=== PATIENT | male | born 1970 | race Two or more races ===

== ENCOUNTER 2023-04-19 18:01 | Inpatient (IN) | payer MEDICARE ==
[~2023-04-19] VITALS: Ht 172.7 cm; Wt 140.2 kg
[2023-04-19] MEDS ORDERED: SODIUM CHLORIDE 0.9% 3,900 ML IV ONE (18:30)
[2023-04-19] MEDS ORDERED: 0.9% SODIUM CHLORIDE 10 ML SYRINGE IVP PRN (18:30)
[2023-04-19] MEDS ORDERED: PERTUSS(ACELL),DIPH,TET VAC/PF 0.5 ML SYRINGE IM. ONE (18:45)
[2023-04-19] MEDS ORDERED: VANCOMYCIN HCL 1.5 GM in DEXTROSE 5%-WATER 250 ML IV ONE (19:00)
[2023-04-19] MEDS ORDERED: MORPHINE SULFATE 2 MG/ML SYRINGE IVP ONE ×2 (19:15→23:00)
[2023-04-19] MEDS ORDERED: ACETAMINOPHEN 500 MG TABLET PO ONE (19:30)
[2023-04-19 19:34] LABS: BASOPHILS % (AUTO) 0.3 % (0.0-2.0); EOSINOPHILS % (AUTO) 0.2 % (1.0-6.0); HEMATOCRIT 39.7 % (41-53); HEMOGLOBIN 13.2 g/dL (13.5-17.5); LYMPHOCYTES # (AUTO) 0.6 K/uL (1.0-4.8); LYMPHOCYTES % (AUTO) 4.3 % (22.0-44.0); MEAN CORPUSCULAR HEMOGLOBIN 27.6 pg (26.0-34.0); MEAN CORPUSCULAR HGB CONC 33.2 G/dL (31.0-37.0); MEAN CORPUSCULAR VOLUME 83 fL (80-100); MONOCYTES # (AUTO) 0.5 K/uL (0.1-1.0); MONOCYTES % (AUTO) 3.7 % (2.0-9.0); NEUTROPHILS # (AUTO) 12.8 K/uL (1.8-7.7); PLATELET COUNT (AUTO) 234 K/uL (150-450); RED BLOOD CELL COUNT(AUTO) 4.78 MIL/uL (4.50-5.90); RED CELL DISTRIBUTION WIDTH 13.8 % (11.5-14.5)
[2023-04-19 19:37] LABS: NEUTROPHILS % (AUTO) 91.5 % (40.0-70.0)
[2023-04-19 19:43] LABS: ANION GAP 10 mmol/L (8-16); CALCIUM, TOTAL 8.2 mg/dL (8.8-10.5); CARBON DIOXIDE 29 mmol/L (22-29); CHLORIDE 97 mmol/L (98-107); CREATININE 1.08 mg/dL (0.60-1.30); GLOMERULAR FILTR. RATE CALC > 60 mL/min (>60); GLUCOSE,RANDOM 112 mg/dL (70-110); POTASSIUM 3.2 mmol/L (3.5-5.1); PROTHROMBIN TIME 10.5 SEC (9.4-11.6); SODIUM SERUM 136 mmol/L (136-145); UREA NITROGEN, BLOOD 12 mg/dL (7-18)
[2023-04-19 19:50] LABS: ALANINE AMINOTRANSFERASE 32 U/L (12-78); ALKALINE PHOSPHATASE 78 U/L (46-116); ASPARTATE AMINOTRANSFERASE 27 U/L (15-37); BILIRUBIN,TOTAL 0.7 mg/dL (0.1-1.0); LIPASE 20 U/L (16-77)
[2023-04-19 19:52] LABS: LACTIC ACID 1.9 mmol/L (0.4-2.0)
[2023-04-19 20:02] LABS: ALCOHOL, BLOOD (SERUM) < 3 mg/dL (0-10)
[2023-04-19 20:21] LABS: COVID AG,FIA SOURCE NASAL SWAB
[2023-04-19 20:38] LABS: SARS-COV2 (COVID) ANTIGEN,FIA Negative (Negative)
[2023-04-19 22:28] VITALS: BP 122/96; PULSE 112; RESP 20; TEMP 100.2
[2023-04-19 22:49] LABS: APPEARANCE,URINE CLEAR (CLEAR); BILIRUBIN,URINE NEGATIVE (NEGATIVE); COLOR,URINE YELLOW (YELLOW); GLUCOSE, URINE (UA) NEGATIVE (NEGATIVE); KETONES,URINE NEGATIVE (NEGATIVE); LEUKOCYTE ESTERASE ,URINE NEGATIVE (NEGATIVE); NITRATE,URINE NEGATIVE (NEGATIVE); OCCULT BLOOD,URINE NEGATIVE (NEGATIVE); PH,URINE 6.5 (5.0-8.0); PROTEIN,URINE NEGATIVE (NEGATIVE); SPECIFIC GRAVITIY, URINE 1.013 (1.003-1.030)
[2023-04-19 22:58] LABS: AMPHET/METH SCREEN,URINE NEGATIVE (NEGATIVE); BARBITURATE SCREEN, URINE NEGATIVE (NEGATIVE); BENZODIAZEPINES SCREEN,URINE NEGATIVE (NEGATIVE); CANNABINOID SCREEN,URINE NEGATIVE (NEGATIVE); COCAINE SCREEN,URINE POSITIVE (NEGATIVE); METHADONE SCREEN, URINE NEGATIVE (NEGATIVE); OPIATE SCREEN,URINE POSITIVE (NEGATIVE); PHENCYCLIDINE SCREEN,URINE NEGATIVE (NEGATIVE)
[2023-04-19 23:07] LABS: ALCOHOL, URINE DRUG SCREEN NEGATIVE (NEGATIVE)
[2023-04-19 23:11] LABS: PH,URINE DRUG SCREEN 6.5 (5.0-8.0)
[2023-04-20] MEDS ORDERED: VANCOMYCIN HCL 1.25 GM in DEXTROSE 5%-WATER 250 ML IV SCH (01:30)
[2023-04-20] MEDS ORDERED: SODIUM CHLORIDE 0.9% 3,900 ML IV ONE (01:30)
[2023-04-20] MEDS ORDERED: ALBUTEROL SULFATE 2.5 MG/0.5 ML NEB SOLUTION NEB PRN (01:30)
[2023-04-20] MEDS ORDERED: MORPHINE SULFATE 2 MG/ML SYRINGE IVP PRN (01:30)
[2023-04-20] MEDS ORDERED: IPRATROPIUM BROMIDE 0.5 MG/2.5 ML NEB SOLUTION NEB PRN (01:30)
[2023-04-20] MEDS ORDERED: BISACODYL 10 MG RECTAL RECTAL SUPPOSITORY PR PRN (01:30)
[2023-04-20] MEDS ORDERED: MAGNESIUM HYDROXIDE SUSPENSION 30 ML UDCUP PO PRN (01:30)
[2023-04-20] MEDS ORDERED: ONDANSETRON HCL 4 MG/2 ML VIAL IVP PRN (01:30)
[2023-04-20] MEDS ORDERED: VANCOMYCIN 1GM/WATER(PEG/NADA) 200 ML IV SCH (02:15)
[2023-04-20] MEDS ORDERED: INFLUENZA VIRUS VACCINE QVS 2023-24 (6MO+)/PF 60 MCG/0.5 ML SYRINGE IM. ONE (03:00)
[2023-04-20] MEDS: PIPERACILLIN/TAZO 3.375 GM/D5W 50 ML IV SCH ×4 (03:06→20:29)
[2023-04-20] MEDS: SODIUM CHLORIDE 0.9% 1,000 ML IV SCH ×2 (03:06→15:55)
[2023-04-20 03:54] VITALS: BP 145/67; PULSE 108; RESP 20; TEMP 103.1
[2023-04-20] MEDS: ACETAMINOPHEN 325 MG TABLET PO PRN (05:10)
[2023-04-20] MEDS ORDERED: SODIUM CHLORIDE 0.9% 250 ML IV ONE (06:40)
[2023-04-20] MEDS: HEPARIN SODIUM,PORCINE 5,000 UNITS/ML VIAL SQ SCH ×3 (08:21→23:55)
[2023-04-20] MEDS: PANTOPRAZOLE SODIUM 40 MG DR TABLET PO SCH (08:25)
[2023-04-20 08:56] VITALS: BP 119/80; PULSE 96; RESP 20; TEMP 102
[2023-04-20] MEDS: VANCOMYCIN 1GM/WATER(PEG/NADA) 200 ML IV SCH ×2 (09:25→17:12)
[2023-04-20] MEDS ORDERED: MAGNESIUM SULFATE 4 GM/WATER 100 ML IV PRN (12:15)
[2023-04-20] MEDS ORDERED: MAGNESIUM SULFATE 2 GM/WATER 50 ML IV PRN (12:15)
[2023-04-20] MEDS ORDERED: MAGNESIUM OXIDE 400 MG TABLET PO PRN (12:15)
[2023-04-20] MEDS: CLINDAMYCIN 900 MG/D5% WATER 50 ML IV SCH (15:55)
[2023-04-20] MEDS: POTASSIUM CHLORIDE 20 MEQ ER TABLET PO PRN ×2 (16:00→23:55)
[2023-04-20] MEDS: HYDROCODONE/ACETAMINOPHEN 5-325 MG TABLET PO PRN ×2 (16:01→23:55)
[2023-04-20 16:58] VITALS: BP 127/75; PULSE 97; RESP 20; TEMP 103.1
[2023-04-20 20:33] VITALS: BP 117/71; PULSE 96; RESP 18; TEMP 101.3
[2023-04-21] MEDS: VANCOMYCIN 1GM/WATER(PEG/NADA) 200 ML IV SCH ×3 (00:03→17:05)
[2023-04-21] MEDS: CLINDAMYCIN 900 MG/D5% WATER 50 ML IV SCH ×4 (00:03→23:36)
[2023-04-21] MEDS: PIPERACILLIN/TAZO 3.375 GM/D5W 50 ML IV SCH ×4 (02:19→19:34)
[2023-04-21 04:36] VITALS: BP 124/67; PULSE 101; RESP 18; TEMP 99.7
[2023-04-21] MEDS: ACETAMINOPHEN 325 MG TABLET PO PRN (04:40)
[2023-04-21] MEDS: SODIUM CHLORIDE 0.9% 1,000 ML IV SCH (04:40)
[2023-04-21 06:01] LABS: BASOPHILS % (AUTO) 0.5 % (0.0-2.0); EOSINOPHILS % (AUTO) 2.2 % (1.0-6.0); HEMATOCRIT 33.4 % (41-53); LYMPHOCYTES # (AUTO) 1.1 K/uL (1.0-4.8); LYMPHOCYTES % (AUTO) 10.1 % (22.0-44.0); MEAN CORPUSCULAR HEMOGLOBIN 27.5 pg (26.0-34.0); MEAN CORPUSCULAR HGB CONC 32.8 G/dL (31.0-37.0); MEAN CORPUSCULAR VOLUME 84 fL (80-100); MONOCYTES # (AUTO) 0.8 K/uL (0.1-1.0); MONOCYTES % (AUTO) 7.3 % (2.0-9.0); NEUTROPHILS % (AUTO) 79.9 % (40.0-70.0); PLATELET COUNT (AUTO) 166 K/uL (150-450); RED BLOOD CELL COUNT(AUTO) 3.98 MIL/uL (4.50-5.90); WHITE BLOOD COUNT (AUTO) 11.3 K/uL (4.5-11.0)
[2023-04-21 06:26] LABS: ANION GAP 6 mmol/L (8-16); CALCIUM, TOTAL 7.8 mg/dL (8.8-10.5); CARBON DIOXIDE 26 mmol/L (22-29); CHLORIDE 103 mmol/L (98-107); CREATININE 1.06 mg/dL (0.60-1.30); GLOMERULAR FILTR. RATE CALC > 60 mL/min (>60); GLUCOSE,RANDOM 114 mg/dL (70-110); POTASSIUM 3.2 mmol/L (3.5-5.1); SODIUM SERUM 135 mmol/L (136-145); UREA NITROGEN, BLOOD 10 mg/dL (7-18); VANCOMYCIN,RANDOM 15.8 mcg/mL (25.0-50.0)
[2023-04-21] MEDS: POTASSIUM CHLORIDE 20 MEQ ER TABLET PO PRN (06:40)
[2023-04-21 07:09] VITALS: BP 128/87; PULSE 88; RESP 18; TEMP 94.8
[2023-04-21] MEDS: PANTOPRAZOLE SODIUM 40 MG DR TABLET PO SCH (08:17)
[2023-04-21] MEDS: HEPARIN SODIUM,PORCINE 5,000 UNITS/ML VIAL SQ SCH ×3 (08:23→23:38)
[2023-04-21 09:42] VITALS: BP 119/69; PULSE 107; RESP 18; TEMP 99.8
[2023-04-21] MEDS: HYDROCODONE/ACETAMINOPHEN 5-325 MG TABLET PO PRN ×2 (09:42→19:41)
[2023-04-21 16:00] VITALS: BP 133/81; PULSE 89; RESP 18; TEMP 98.6
[2023-04-21] MEDS: GuaiFENesin [SUGAR-FREE] 200 MG/10 ML SOLUTION UDCUP PO PRN ×2 (18:34→22:19)
[2023-04-21 20:11] VITALS: BP 106/62; PULSE 96; RESP 18; TEMP 99.9
[2023-04-22] MEDS: VANCOMYCIN 1GM/WATER(PEG/NADA) 200 ML IV SCH ×2 (00:13→09:01)
[2023-04-22] MEDS: PIPERACILLIN/TAZO 3.375 GM/D5W 50 ML IV SCH ×2 (02:36→07:59)
[2023-04-22 03:54] VITALS: BP 126/66; PULSE 95; RESP 20; TEMP 98.7
[2023-04-22] MEDS: SODIUM CHLORIDE 0.9% 1,000 ML IV SCH ×3 (04:42→23:57)
[2023-04-22 06:08] LABS: ANION GAP 7 mmol/L (8-16); CALCIUM, TOTAL 8.3 mg/dL (8.8-10.5); CARBON DIOXIDE 26 mmol/L (22-29); CHLORIDE 102 mmol/L (98-107); CREATININE 0.95 mg/dL (0.60-1.30); GLOMERULAR FILTR. RATE CALC > 60 mL/min (>60); GLUCOSE,RANDOM 90 mg/dL (70-110); POTASSIUM 3.4 mmol/L (3.5-5.1); SODIUM SERUM 135 mmol/L (136-145); UREA NITROGEN, BLOOD 6 mg/dL (7-18)
[2023-04-22] MEDS: POTASSIUM CHLORIDE 20 MEQ ER TABLET PO PRN (07:56)
[2023-04-22] MEDS: PANTOPRAZOLE SODIUM 40 MG DR TABLET PO SCH (07:56)
[2023-04-22] MEDS: HEPARIN SODIUM,PORCINE 5,000 UNITS/ML VIAL SQ SCH ×2 (07:57→16:21)
[2023-04-22 08:16] VITALS: BP 127/86; PULSE 93; RESP 18; TEMP 98.9
[2023-04-22] MEDS: CLINDAMYCIN 900 MG/D5% WATER 50 ML IV SCH ×3 (09:00→23:56)
[2023-04-22 11:38] LABS: BASOPHILS % (AUTO) 0.7 % (0.0-2.0); EOSINOPHILS % (AUTO) 4.3 % (1.0-6.0); HEMATOCRIT 35.3 % (41-53); HEMOGLOBIN 11.5 g/dL (13.5-17.5); LYMPHOCYTES # (AUTO) 1.2 K/uL (1.0-4.8); MEAN CORPUSCULAR HEMOGLOBIN 27.6 pg (26.0-34.0); MEAN CORPUSCULAR HGB CONC 32.5 G/dL (31.0-37.0); MEAN CORPUSCULAR VOLUME 85 fL (80-100); MONOCYTES # (AUTO) 0.9 K/uL (0.1-1.0); MONOCYTES % (AUTO) 8.3 % (2.0-9.0); NEUTROPHILS % (AUTO) 75.7 % (40.0-70.0); PLATELET COUNT (AUTO) 190 K/uL (150-450); RED BLOOD CELL COUNT(AUTO) 4.15 MIL/uL (4.50-5.90); RED CELL DISTRIBUTION WIDTH 14.4 % (11.5-14.5); WHITE BLOOD COUNT (AUTO) 10.5 K/uL (4.5-11.0)
[2023-04-22 11:53] LABS: ALANINE AMINOTRANSFERASE 27 U/L (12-78); ALBUMIN 2.2 g/dL (3.4-5.0); ALKALINE PHOSPHATASE 66 U/L (46-116); ASPARTATE AMINOTRANSFERASE 26 U/L (15-37); BILIRUBIN,TOTAL 0.4 mg/dL (0.1-1.0); TOTAL PROTEIN, SERUM 6.6 g/dL (6.4-8.2)
[2023-04-22] MEDS: PENICILLIN G POTASSIUM 4 MILUNITS in DEXTROSE 5%-WATER 100 ML IV SCH ×3 (15:18→22:46)
[2023-04-22 16:03] VITALS: BP 140/92; PULSE 86; RESP 14; TEMP 99.3
[2023-04-22 20:01] VITALS: BP 124/63; PULSE 84; RESP 18; TEMP 99.4
[2023-04-22] MEDS: ZOLPIDEM TARTRATE 5 MG TABLET PO PRN (21:44)
[2023-04-23] MEDS: HEPARIN SODIUM,PORCINE 5,000 UNITS/ML VIAL SQ SCH ×4 (00:02→23:16)
[2023-04-23 00:11] VITALS: TEMP 99.1
[2023-04-23] MEDS: PENICILLIN G POTASSIUM 4 MILUNITS in DEXTROSE 5%-WATER 100 ML IV SCH ×3 (02:48→10:52)
[2023-04-23 03:20] VITALS: BP 136/88; PULSE 83; RESP 18; TEMP 98.2
[2023-04-23 06:59] LABS: ANION GAP 8 mmol/L (8-16); CARBON DIOXIDE 26 mmol/L (22-29); CHLORIDE 104 mmol/L (98-107); CREATININE 0.93 mg/dL (0.60-1.30); GLOMERULAR FILTR. RATE CALC > 60 mL/min (>60); GLUCOSE,RANDOM 112 mg/dL (70-110); POTASSIUM 3.6 mmol/L (3.5-5.1); SODIUM SERUM 138 mmol/L (136-145); UREA NITROGEN, BLOOD 9 mg/dL (7-18)
[2023-04-23] MEDS: CLINDAMYCIN 900 MG/D5% WATER 50 ML IV SCH (08:01)
[2023-04-23] MEDS: PANTOPRAZOLE SODIUM 40 MG DR TABLET PO SCH (08:01)
[2023-04-23 08:02] VITALS: BP 134/78; PULSE 84; RESP 18; TEMP 98.4
[2023-04-23] MEDS: GuaiFENesin [SUGAR-FREE] 200 MG/10 ML SOLUTION UDCUP PO PRN ×2 (08:02→23:14)
[2023-04-23 10:35] LABS: EOSINOPHILS % (AUTO) 6.2 % (1.0-6.0); HEMATOCRIT 34.5 % (41-53); HEMOGLOBIN 11.3 g/dL (13.5-17.5); LYMPHOCYTES # (AUTO) 1.3 K/uL (1.0-4.8); LYMPHOCYTES % (AUTO) 17.6 % (22.0-44.0); MEAN CORPUSCULAR HEMOGLOBIN 27.7 pg (26.0-34.0); MEAN CORPUSCULAR HGB CONC 32.8 G/dL (31.0-37.0); MEAN CORPUSCULAR VOLUME 84 fL (80-100); MONOCYTES # (AUTO) 0.9 K/uL (0.1-1.0); MONOCYTES % (AUTO) 11.9 % (2.0-9.0); NEUTROPHILS # (AUTO) 4.7 K/uL (1.8-7.7); NEUTROPHILS % (AUTO) 63.3 % (40.0-70.0); PLATELET COUNT (AUTO) 211 K/uL (150-450); RED BLOOD CELL COUNT(AUTO) 4.09 MIL/uL (4.50-5.90); RED CELL DISTRIBUTION WIDTH 14.3 % (11.5-14.5); WHITE BLOOD COUNT (AUTO) 7.4 K/uL (4.5-11.0)
[2023-04-23] MEDS: CefTRIAXone SODIUM 2 GM in DEXTROSE 5%-WATER 50 ML IV SCH (15:00)
[2023-04-23 15:03] VITALS: BP 119/85; PULSE 78; RESP 18; TEMP 99.2
[2023-04-23] MEDS: SODIUM CHLORIDE 0.9% 1,000 ML IV SCH (18:27)
[2023-04-23 21:10] VITALS: BP 123/78; PULSE 82; RESP 20; TEMP 98.4
[2023-04-23] MEDS: ZOLPIDEM TARTRATE 5 MG TABLET PO PRN (23:14)
[2023-04-24] MEDS: CefTRIAXone SODIUM 2 GM in DEXTROSE 5%-WATER 50 ML IV SCH ×2 (03:14→15:20)
[2023-04-24 04:36] VITALS: BP 126/67; PULSE 81; RESP 18; TEMP 98.1
[2023-04-24] MEDS: SODIUM CHLORIDE 0.9% 1,000 ML IV SCH ×2 (05:23→17:57)
[2023-04-24 07:57] LABS: ANION GAP 9 mmol/L (8-16); CALCIUM, TOTAL 8.1 mg/dL (8.8-10.5); CARBON DIOXIDE 25 mmol/L (22-29); CHLORIDE 104 mmol/L (98-107); CREATININE 0.93 mg/dL (0.60-1.30); GLOMERULAR FILTR. RATE CALC > 60 mL/min (>60); GLUCOSE,RANDOM 95 mg/dL (70-110); POTASSIUM 3.9 mmol/L (3.5-5.1); SODIUM SERUM 137 mmol/L (136-145); UREA NITROGEN, BLOOD 15 mg/dL (7-18)
[2023-04-24 08:20] VITALS: BP 110/69; PULSE 74; RESP 18; TEMP 98.2
[2023-04-24] MEDS: PANTOPRAZOLE SODIUM 40 MG DR TABLET PO SCH (08:36)
[2023-04-24] MEDS: HEPARIN SODIUM,PORCINE 5,000 UNITS/ML VIAL SQ SCH ×3 (08:36→23:02)
[2023-04-24 11:31] LABS: GLUCOMETER DEV NAME(LOC) 4E.2; GLUCOSE,POINT OF CARE 102 MG/DL (70-110)
[2023-04-24] MEDS: BENZONATATE 100 MG CAPSULE PO SCH ×2 (16:21→23:03)
[2023-04-24 17:16] VITALS: BP 117/55; PULSE 73; RESP 18; TEMP 99
[2023-04-24 20:33] VITALS: BP 127/85; PULSE 84; RESP 20; TEMP 98.2
[2023-04-24] MEDS: ZOLPIDEM TARTRATE 5 MG TABLET PO PRN (23:02)
[2023-04-25] MEDS: CefTRIAXone SODIUM 2 GM in DEXTROSE 5%-WATER 50 ML IV SCH ×2 (02:47→15:30)
[2023-04-25 04:59] VITALS: BP 130/79; PULSE 72; RESP 20; TEMP 98.1
[2023-04-25] MEDS: SODIUM CHLORIDE 0.9% 1,000 ML IV SCH ×2 (05:58→17:55)
[2023-04-25] MEDS: PANTOPRAZOLE SODIUM 40 MG DR TABLET PO SCH (08:03)
[2023-04-25] MEDS: BENZONATATE 100 MG CAPSULE PO SCH ×3 (08:03→23:04)
[2023-04-25] MEDS: HEPARIN SODIUM,PORCINE 5,000 UNITS/ML VIAL SQ SCH ×3 (08:04→23:04)
[2023-04-25 20:49] VITALS: BP 115/68; PULSE 94; RESP 20; TEMP 98.3
[2023-04-25] MEDS: ZOLPIDEM TARTRATE 5 MG TABLET PO PRN (23:04)
[2023-04-26] MEDS: CefTRIAXone SODIUM 2 GM in DEXTROSE 5%-WATER 50 ML IV SCH ×2 (03:35→16:20)
[2023-04-26] MEDS: SODIUM CHLORIDE 0.9% 1,000 ML IV SCH ×2 (03:35→18:05)
[2023-04-26 04:05] VITALS: BP 118/59; PULSE 79; RESP 18; TEMP 98
[2023-04-26] MEDS: HEPARIN SODIUM,PORCINE 5,000 UNITS/ML VIAL SQ SCH ×3 (08:26→23:08)
[2023-04-26] MEDS: PANTOPRAZOLE SODIUM 40 MG DR TABLET PO SCH (08:26)
[2023-04-26] MEDS: BENZONATATE 100 MG CAPSULE PO SCH ×3 (08:26→23:07)
[2023-04-26 09:17] VITALS: BP 114/70; PULSE 68; RESP 18; TEMP 98
[2023-04-26 15:41] VITALS: BP 110/63; PULSE 91; RESP 20; TEMP 98.1
[2023-04-26 20:08] VITALS: BP 106/65; PULSE 95; RESP 18; TEMP 98.4
[2023-04-26] MEDS: ZOLPIDEM TARTRATE 5 MG TABLET PO PRN (23:09)
[2023-04-27] MEDS: CefTRIAXone SODIUM 2 GM in DEXTROSE 5%-WATER 50 ML IV SCH ×2 (03:01→15:48)
[2023-04-27 04:48] VITALS: BP 112/67; PULSE 93; RESP 18; TEMP 98.5
[2023-04-27] MEDS: SODIUM CHLORIDE 0.9% 1,000 ML IV SCH ×2 (06:14→20:20)
[2023-04-27] MEDS: HEPARIN SODIUM,PORCINE 5,000 UNITS/ML VIAL SQ SCH ×3 (08:00→23:00)
[2023-04-27] MEDS: BENZONATATE 100 MG CAPSULE PO SCH ×3 (08:00→23:00)
[2023-04-27 08:40] VITALS: BP 121/72; PULSE 77; RESP 19
[2023-04-27] MEDS: PANTOPRAZOLE SODIUM 40 MG DR TABLET PO SCH (08:42)
[2023-04-27 20:42] VITALS: BP 134/74; PULSE 73; RESP 18; TEMP 98.6
[2023-04-27] MEDS: ZOLPIDEM TARTRATE 5 MG TABLET PO PRN (23:00)
[2023-04-28] MEDS: CefTRIAXone SODIUM 2 GM in DEXTROSE 5%-WATER 50 ML IV SCH ×2 (02:56→14:47)
[2023-04-28 06:41] VITALS: BP 131/72; PULSE 70; RESP 20; TEMP 97.8
[2023-04-28] MEDS: BENZONATATE 100 MG CAPSULE PO SCH ×3 (08:30→22:56)
[2023-04-28] MEDS: PANTOPRAZOLE SODIUM 40 MG DR TABLET PO SCH (08:30)
[2023-04-28] MEDS: HEPARIN SODIUM,PORCINE 5,000 UNITS/ML VIAL SQ SCH ×3 (08:31→22:56)
[2023-04-28 08:48] VITALS: BP 133/82; PULSE 78; RESP 20; TEMP 97.8
[2023-04-28] MEDS ORDERED: GUAI10 PO (12:30)
[2023-04-28] MEDS ORDERED: ZOLP-280 PO (12:52)
[2023-04-28] MEDS: ZOLPIDEM TARTRATE 5 MG TABLET PO PRN (22:56)
[2023-04-29] MEDS: CefTRIAXone SODIUM 2 GM in DEXTROSE 5%-WATER 50 ML IV SCH ×2 (02:29→15:02)
[2023-04-29] MEDS: HEPARIN SODIUM,PORCINE 5,000 UNITS/ML VIAL SQ SCH ×3 (08:03→23:00)
[2023-04-29] MEDS: PANTOPRAZOLE SODIUM 40 MG DR TABLET PO SCH (08:03)
[2023-04-29] MEDS: BENZONATATE 100 MG CAPSULE PO SCH ×3 (08:03→22:59)
[2023-04-29 16:22] VITALS: BP 119/83; PULSE 74; RESP 19; TEMP 98
[2023-04-29 19:26] VITALS: BP 125/81; PULSE 91; RESP 20; TEMP 98.9
[2023-04-29] MEDS: ZOLPIDEM TARTRATE 5 MG TABLET PO PRN (23:01)
[2023-04-30] MEDS: CefTRIAXone SODIUM 2 GM in DEXTROSE 5%-WATER 50 ML IV SCH ×2 (02:15→15:11)
[2023-04-30 04:23] VITALS: BP 120/85; PULSE 68; RESP 20; TEMP 98.1
[2023-04-30 08:13] VITALS: BP 112/60; PULSE 67; RESP 18; TEMP 98.2
[2023-04-30] MEDS: HEPARIN SODIUM,PORCINE 5,000 UNITS/ML VIAL SQ SCH ×3 (08:32→23:15)
[2023-04-30] MEDS: PANTOPRAZOLE SODIUM 40 MG DR TABLET PO SCH (08:32)
[2023-04-30] MEDS: BENZONATATE 100 MG CAPSULE PO SCH ×3 (08:33→23:15)
[2023-04-30 16:21] VITALS: BP 118/73; PULSE 80; RESP 20; TEMP 98.2
[2023-04-30 19:50] VITALS: BP 123/66; PULSE 84; RESP 18; TEMP 99
[2023-04-30] MEDS: ZOLPIDEM TARTRATE 5 MG TABLET PO PRN (23:17)
[2023-05-01] MEDS: CefTRIAXone SODIUM 2 GM in DEXTROSE 5%-WATER 50 ML IV SCH ×2 (03:06→15:09)
[2023-05-01 04:15] VITALS: BP 128/85; PULSE 70; RESP 20; TEMP 98.1
[2023-05-01] MEDS: BENZONATATE 100 MG CAPSULE PO SCH ×3 (07:44→23:19)
[2023-05-01] MEDS: PANTOPRAZOLE SODIUM 40 MG DR TABLET PO SCH (07:44)
[2023-05-01] MEDS: HEPARIN SODIUM,PORCINE 5,000 UNITS/ML VIAL SQ SCH ×3 (07:45→23:18)
[2023-05-01 09:29] VITALS: BP 114/67; PULSE 73; RESP 20; TEMP 98
[2023-05-01 16:39] VITALS: BP 112/74; PULSE 85; RESP 20; TEMP 98.8
[2023-05-01 21:36] VITALS: BP 116/72; PULSE 92; RESP 18; TEMP 99.3
[2023-05-01] MEDS: ZOLPIDEM TARTRATE 5 MG TABLET PO PRN (23:19)
[2023-05-02] MEDS: CefTRIAXone SODIUM 2 GM in DEXTROSE 5%-WATER 50 ML IV SCH ×2 (02:55→14:46)
[2023-05-02 05:20] VITALS: BP 107/71; PULSE 73; RESP 18; TEMP 98.2
[2023-05-02 08:35] VITALS: BP 121/75; PULSE 77; RESP 20; TEMP 98.7
[2023-05-02] MEDS: PANTOPRAZOLE SODIUM 40 MG DR TABLET PO SCH (08:59)
[2023-05-02] MEDS: HEPARIN SODIUM,PORCINE 5,000 UNITS/ML VIAL SQ SCH ×3 (08:59→23:27)
[2023-05-02] MEDS: BENZONATATE 100 MG CAPSULE PO SCH ×3 (08:59→23:27)
[2023-05-02 16:39] VITALS: BP 131/71; PULSE 86; RESP 20; TEMP 98.4
[2023-05-02 20:22] VITALS: BP 127/76; PULSE 88; RESP 20; TEMP 98.6
[2023-05-02] MEDS: ZOLPIDEM TARTRATE 5 MG TABLET PO PRN (23:27)
[2023-05-02] MEDS ORDERED: SODIUM CHLORIDE 0.9% 250 ML IV ONE (23:31)
[2023-05-03] MEDS: CefTRIAXone SODIUM 2 GM in DEXTROSE 5%-WATER 50 ML IV SCH ×2 (03:27→15:32)
[2023-05-03 04:20] VITALS: BP 111/74; PULSE 80; RESP 20; TEMP 98.5
[2023-05-03 07:53] VITALS: BP 118/76; PULSE 84; RESP 20; TEMP 98.4
[2023-05-03] MEDS: HEPARIN SODIUM,PORCINE 5,000 UNITS/ML VIAL SQ SCH ×3 (08:19→23:01)
[2023-05-03] MEDS: BENZONATATE 100 MG CAPSULE PO SCH ×3 (08:19→23:01)
[2023-05-03] MEDS: PANTOPRAZOLE SODIUM 40 MG DR TABLET PO SCH (08:19)
[2023-05-03 15:51] VITALS: BP 117/77; PULSE 89; RESP 20; TEMP 98.6
[2023-05-03 20:11] VITALS: BP 113/69; PULSE 97; RESP 19; TEMP 98.4
[2023-05-03] MEDS: ZOLPIDEM TARTRATE 5 MG TABLET PO PRN (23:01)
[2023-05-04] MEDS: CefTRIAXone SODIUM 2 GM in DEXTROSE 5%-WATER 50 ML IV SCH ×2 (02:41→14:07)
[2023-05-04 05:31] VITALS: BP 115/71; PULSE 92; RESP 20; TEMP 98.2
[2023-05-04 08:02] VITALS: BP 123/80; PULSE 71; RESP 20; TEMP 97.9
[2023-05-04] MEDS: PANTOPRAZOLE SODIUM 40 MG DR TABLET PO SCH (08:22)
[2023-05-04] MEDS: BENZONATATE 100 MG CAPSULE PO SCH ×3 (08:22→22:59)
[2023-05-04] MEDS: HEPARIN SODIUM,PORCINE 5,000 UNITS/ML VIAL SQ SCH ×3 (08:23→22:59)
[2023-05-04] MEDS ORDERED: SODIUM CHLORIDE 0.9% 1,000 ML ONE (13:49)
[2023-05-04 15:20] VITALS: BP 124/82; PULSE 84; RESP 20; TEMP 98.4
[2023-05-04 19:26] VITALS: BP 116/63; PULSE 91; RESP 20; TEMP 98.5
[2023-05-04] MEDS ORDERED: DiphenhydrAMINE HCL 25 MG CAPSULE PO PRN (21:15)
[2023-05-04] MEDS: ZOLPIDEM TARTRATE 5 MG TABLET PO PRN (22:59)
[2023-05-05] MEDS: CefTRIAXone SODIUM 2 GM in DEXTROSE 5%-WATER 50 ML IV SCH ×2 (02:48→10:32)
[2023-05-05 04:02] VITALS: BP 100/69; PULSE 68; RESP 20; TEMP 97.6
[2023-05-05 08:10] VITALS: BP 102/60; PULSE 71; RESP 20; TEMP 98.6
[2023-05-05] MEDS: PANTOPRAZOLE SODIUM 40 MG DR TABLET PO SCH (08:33)
[2023-05-05] MEDS: HEPARIN SODIUM,PORCINE 5,000 UNITS/ML VIAL SQ SCH (08:33)
[2023-05-05] MEDS: BENZONATATE 100 MG CAPSULE PO SCH (08:33)
== END 2023-05-05 14:55 | disposition home or self-care (01) | DRG 872 ==
LOC: EMS 18:02 → 6S 21:00
PROVIDERS: ADMIT Hospitalist; ATTEND Hospitalist
PROC: 05HB33Z Insertion of Infusion Device into Right Basilic Vein, Percutaneous Approach (ICD-10-PCS; principal; 2023-04-27)
PROC: B54MZZA Ultrasonography of Right Upper Extremity Veins, Guidance (ICD-10-PCS; 2023-04-27)
DX: A40.0 Sepsis due to streptococcus, group A (principal); L03.115 Cellulitis of right lower limb; L03.311 Cellulitis of abdominal wall; Z68.42 Body mass index [BMI] 45.0-49.9, adult; Z59.01 Sheltered homelessness; E66.9 Obesity, unspecified; I10 Essential (primary) hypertension; R73.03 Prediabetes; Z20.822 Contact with and (suspected) exposure to COVID-19; R05.9 Cough, unspecified; E87.6 Hypokalemia; D64.9 Anemia, unspecified; F14.10 Cocaine abuse, uncomplicated; T21.22XA Burn of second degree of abdominal wall, initial encounter; X08.8XXA Exposure to other specified smoke, fire and flames, initial encounter; Y93.89 Activity, other specified; Y92.89 Other specified places as the place of occurrence of the external cause; Y99.8 Other external cause status
CPT/HCPCS: 36245; 36569; 71045; 73720; 76937; 80048; 80053; 80202; 80307; 81003; 82040; 82962; 83605; 83690; 83735; 84132; 84145; 85025; 85610; 87040; 87077; 87205; 90715; 93005; 93306; 93971; 99285; G0480; J0696; J1644; J2270; J2540; J2543; J3370; J3490; J7030; J7050; J7060; Q9967; 36415-L1; 36415-TC